=== PATIENT | male | born 1975 | race Two or more races ===

== ENCOUNTER 2024-05-23 21:50 | Emergency (ER) | payer BC ==
[2024-05-23] MEDS: Lidocaine 2% 5 ML SDV INJECT ONE (23:07)
== END 2024-05-23 23:47 | disposition home or self-care (01) ==
LOC: MW.ED 21:50
DX: S61.412A Laceration without foreign body of left hand, initial encounter (principal); E11.9 Type 2 diabetes mellitus without complications; Z79.4 Long term (current) use of insulin; Z79.899 Other long term (current) drug therapy; Z88.5 Allergy status to narcotic agent; W26.0XXA Contact with knife, initial encounter
CPT/HCPCS: 12001; 99283; J3490